=== PATIENT | male | born 1985 | race Caucasian/White ===

== ENCOUNTER 2017-02-17 15:40 | Emergency (ER) | payer BC ==
--- NOTE | ~2017-02-17 | CR229 ---
[facility]. [facility] A Service of [facility] & [facility] RADIOLOGY TEXT RESULTS PATIENT: CANDACE RAWLS LOCATION: SED : 83 UNIT #: [id number] AGE: [address]: JEREMY ESCOBAR SEX: M ORDER DR: [id number] [place] [address] [id number] MR#: [id number] Acc #: [id number] NAME: CANDACE RAWLS : 1985 SEX: M STUDY DATE/TIME: 02/17/2017 15:59 UNIT: SED ROOM: STUDY DESCRIPTION: CR Shoulder Min 2 View Lt Attending Physician: Jeremy Escobar Ordering Physician: Jeremy Escobar Primary Care Physician: Primary Care Physician No MEDICAL IMAGING REPORT This report is preliminary unless electronic signature is present. EXAM Left shoulder 3 views, 02/17/2017 COMPARISON None HISTORY Left shoulder pain since injury this morning. FINDINGS Normal. Dictated by... Eduardo Herrmann M.D. THIS IS AN ELECTRONICALLY VERIFIED REPORT Eduardo Herrmann M.D. at 02/20/2017 9:07 AM TEV/moisés TD: 02/18/2017 14:17 JOB #: [id number] MEDICAL IMAGING REPORT Page 1 of 1
[~2017-02-17 15:40] MED LIST: IBUPROFEN800 MG PO; NO MEDICATIONS; VOLTAREN75 MG PO; ZOFRAN PO
== END 2017-02-17 17:13 | disposition home or self-care (01) ==
LOC: SED 15:40
DX: S40.012A Contusion of left shoulder, initial encounter (principal); G56.00 Carpal tunnel syndrome, unspecified upper limb; F17.210 Nicotine dependence, cigarettes, uncomplicated; W22.8XXA Striking against or struck by other objects, initial encounter; Y92.009 Unspecified place in unspecified non-institutional (private) residence as the place of occurrence of the external cause
CPT/HCPCS: 73030; 99283